=== PATIENT | female | born 1965 | race Two or more races ===

== ENCOUNTER 2022-11-13 13:59 | Emergency (ER) | payer OTHER ==
[~2022-11-13] VITALS: Ht 162.6 cm; Wt 65.3 kg
[2022-11-13 14:12] VITALS: BP 141/64; TEMP 98.8
[2022-11-13] MEDS ORDERED: GABA-532 PO (14:24)
[2022-11-13 15:04] VITALS: O2SAT 100
== END 2022-11-13 15:04 | disposition home or self-care (01) ==
LOC: ER 14:07
DX: B02.22 Postherpetic trigeminal neuralgia (principal)